=== PATIENT | female | born 1955 | race Two or more races ===

== ENCOUNTER 2025-05-30 18:04 | Inpatient (IN) | payer OTHER ==
[~2025-05-30] VITALS: Ht 154.9 cm; Wt 78.8 kg
[2025-05-30 18:25] VITALS: PULSE 85; RESP 33; O2SAT 95
[2025-05-30] MEDS: ACETAMINOPHEN 500 MG TAB or CAP PO ONE (18:38)
[2025-05-30 18:56] LABS: Hematocrit 35.2 % (36.0-46.0); Hemoglobin 12.0 g/dL (12.2-16.2); Mean Corpuscular Hemoglobin 34.1 pg (28.0-32.0); Mean Corpuscular Volume 100.0 fL (80.0-100.0); Nucleated Red Blood Cells % 0.0 %
[2025-05-30 19:14] LABS: Alanine Aminotransferase 34 U/L (7-40); Albumin 3.8 g/dL (3.2-4.8); Alkaline Phosphatase 90 U/L (46-116); Anion Gap 10 (5-15); BUN/Creatinine Ratio 6.7 (10.0-20.0); Carbon Dioxide 22 mmol/L (20-31); Chloride 100 mmol/L (98-107); Potassium 4.0 mmol/L (3.5-5.1); Total Protein 7.4 g/dL (5.7-8.2)
[2025-05-30 19:15] LABS: Bilirubin, Total 1.5 mg/dL (0.2-1.0); Blood Urea Nitrogen 8 mg/dL (9-23); Calcium 8.7 mg/dL (8.7-10.4); Glucose 186 mg/dL (74-106); Sodium 132 mmol/L (136-145)
[2025-05-30 19:23] VITALS: O2SAT 94
--- NOTE | 2025-05-30 19:30 | ED.PDOC ---
History of Present Illness HPI Comments 69 year-old female presents to the ED via EMS for general weakness as of today. Per nursing staff, patient had a witnessed fall today while using the restroom. Patient has a PMHx of Epilepsy and Type II DM. Per EMS, patients BG levels were 150 en route. Upon arrival to the ED, patient was SAT at 88% on RA, placed on 4L O2. Patient denies any CP, SOB, dizziness, or weakness at this time. REVIEW OF SYSTEMS: General: No fever, no chills, or fatigue HEENT: No sore throat, no earache, no congestion, no neck pain. Cardiac: No chest pain. No palpitations. Lungs: No shortness of breath, no cough. GI: No nausea, no vomiting, no diarrhea, no constipation, no abdominal pain : No dysuria, frequency, or urgency. No hematuria. Musculoskeletal: (+) L arm pain, no joint swelling, no extremity edema. Skin: No rash, no itching. Neuro: (+) Weakness, No headache, no dizziness (And as sated in HPI) PHYSICAL EXAM: General: Awake, alert and oriented. No acute distress. N.C in place Skin: Skin in warm, dry and intact. Appropriate color for ethnicity. HEENT: The head is normocephalic and atraumatic. Conjunctivae are clear without exudates or hemorrhage. Sclera is non-icteric. Eyelids are normal in appearance without swelling or lesions. Oral mucosa is pink and moist Neck: The neck is supple with normal range of motion. No JVD. Cardiac: Heart rate and rhythm are normal. No murmurs, gallops, or rubs are auscultated. Respiratory: No signs of respiratory distress. Lung sounds are clear in all lobes bilaterally without rales, rhonchi, or wheezes. Abdominal: Abdomen is soft, non-tender without distention, guarding or rigidity. Bowel sounds are present and normoactive in all four quadrants. Extremities: Lower extremities without edema. Neurological: The patient is awake, alert and oriented to person, place, and time with normal speech. Speech is clear. There is no facial asymmetry. Strength in upper and lower extremities intact. Psychiatric: Appropriate mood and affect. Good judgement and insight. Chief Complaint: General Weakness Time Seen by MD: 18:34 Reviewed Notes: Medications, Allergies Allergies: Coded Allergies: NO KNOWN ALLERGIES (Unverified , 05/30/25) Information Source: Patient, Emergency Med Personnel Mode of Arrival: EMS Severity: Moderate Timing: Hours Past Medical History PAST MEDICAL HISTORY: DM, Seizures Surgical History: Denies all surgeries [employer] History: No Pertinent [employer]ER History Family History Family History: Reviewed,noncontributory to illness, No family hx of Cancer, No family hx of DM, No family hx of Heart ferdis, No family hx of HTN, No family hx ofKidney fredis, No family hx of Liver fredis, No family hx of Lung fredis, No family hx of Stroke Social History Smoker: Unknown Alcohol: Unknown Drugs: Unknown Lives In: Home Was a procedure done? Was a procedure done?: No EKG EKG : Pulse Rate (adult): 69 [place]: Normal Cardiac Rhythm: NSR Block: None Hypertrophy: None ST: Normal Differential Dx Considerations may include: Differential diagnoses considered include but are not limited to sepsis, CVA, ACS, PE, stroke, ICH, adrenal insufficiency, viral syndrome, thyroid storm, myxedema coma , DKA, HHS, hypoglycemia, anemia, GI bleeding, renal failure, dehydration, hepatic failure, electrolyte imbalance, carbon monoxide poisoning, malignancy, UTI, other. X-Ray, Labs, Meds, VS Vital Signs Date Time Temp Pulse Resp B/P (MAP) Pulse Ox O2 Delivery O2 Flow Rate FiO2 05/30/25 20:54 69 05/30/25 20:48 69 05/30/25 20:00 71 05/30/25 19:30 100.9 05/30/25 19:23 94 Nasal Cannula* 4 36 05/30/25 19:21 100.9 77 25 144/82 (102) 94 100.9 05/30/25 18:38 102.2 05/30/25 18:25 85 33 95 Nasal Cannula* 4 36 05/30/25 18:25 100.2 85 33 146/75 (98) 95 100.2 05/30/25 18:20 102.9 90 30 144/80 95 102.9 Lab Test 05/30/25 21:21 05/30/25 20:13 05/30/25 19:20 05/30/25 18:31 Range/Units Urine Color Pending Urine Clarity Pending Urine pH Pending Urine Specific [place] Pending Urine Protein Pending Urine Ketones Pending Urine Blood Pending Urine Nitrite Pending Urine Bilirubin Pending Urine Urobilinogen Pending Urine Leukocyte Esterase Pending Urine RBC Pending Urine Microscopic WBC Pending Urine Squamous Epithelial Cells Pending Urine Bacteria Pending Urine Sodium Pending Urine Glucose Pending Influenza Type A Antigen Negative Negative Influenza Type B Antigen Negative Negative SARS-CoV-2 Antigen (Rapid) Negative NEGATIVE Blood Gas Specimen Type Arterial Blood Gas Sample Site Right radial Blood Gas Patient Temperature 37.0 Arterial Blood Date Drawn [id number] Arterial Blood pH 7.526 H 7.350-7.450 Arterial Blood Partial Pressure CO2 24.2 L 32.0-45.0 mmHg Arterial Blood Partial Pressure O2 86.8 83.0-108.0 mmHg Arterial Blood HCO3 19.6 L 21.0-28.0 mmol/L Arterial Blood Oxygen Saturation 97.0 94.0-98.0 % Arterial Blood Base Excess -1.7 -2.0-3.0 mmol/L Arterial Blood Oxyhemoglobin 95.7 94.0-98.0 % Arterial Blood Carboxyhemoglobin 1.1 0.5-1.5 % Arterial Blood Methemoglobin 0.2 0.0-1.5 % Arterial Blood Deoxyhemoglobin 3.0 0.0-5.0 % Ilir Test Modified Blood Gas Total Hemoglobin 12.30 12.0-16.0 g/dL Blood Gas Liter Flow 4.00 Blood Gas Modality Nasal cannula FiO2 % 36.0 White Blood Count 9.4 4.4-10.8 10^3/uL Red Blood Count 3.52 L 4.0-5.20 10^6/uL Hemoglobin 12.0 L 12.2-16.2 g/dL Hematocrit 35.2 L 36.0-46.0 % Mean Corpuscular Volume 100.0 80.0-100.0 fL Mean Corpuscular Hemoglobin 34.1 H 28.0-32.0 pg Mean Corpuscular Hemoglobin Concent 34.1 32.0-36.0 g/dL Red Cell Distribution Width 13.0 11.8-14.3 % Platelet Count 254 140-450 10^3/uL Mean Platelet Volume 7.3 6.9-10.8 fL Neutrophils (%) (Auto) 78.0 37.0-80.0 % Lymphocytes (%) (Auto) 10.6 10.0-50.0 % Monocytes (%) (Auto) 10.9 0.0-12.0 % Eosinophils (%) (Auto) 0.3 0.0-7.0 % Basophils (%) (Auto) 0.2 0.0-2.0 % Neutrophils # (Auto) 7.3 1.6-8.6 10 ^3/uL Lymphocytes # (Auto) 1.0 0.4-5.4 10 ^3/uL Monocytes # (Auto) 1.0 0-1.3 10 ^3/uL Eosinophils # (Auto) 0 0-0.8 10 ^3/uL Basophils # (Auto) 0 0-0.2 10 ^3/uL Nucleated Red Blood Cells 0.0 % D-Dimer, Quantitative 0.62 H 0.0-0.49 mg/L FEU Sodium Level 132 L 136-145 mmol/L Potassium Level 4.0 3.5-5.1 mmol/L Chloride Level 100 98-107 mmol/L Carbon Dioxide Level 22 20-31 mmol/L Anion Gap 10 5-15 Blood Urea Nitrogen 8 L 9-23 mg/dL Creatinine 1.19 H 0.550-1.02 mg/dL Glomerular Filtration Rate Calc 49 >90 mL/min BUN/Creatinine Ratio 6.7 L 10.0-20.0 Serum Glucose 186 H 74-106 mg/dL Lactic Acid Level 2.0 0.4-2.0 mmol/L Calcium Level 8.7 8.7-10.4 mg/dL Total Bilirubin 1.5 H 0.2-1.0 mg/dL Aspartate Amino Transferase (AST) 42 H 13-40 U/L Alanine Aminotransferase (ALT) 34 7-40 U/L Alkaline Phosphatase 90 46-116 U/L Troponin I High Sensitivity 3 L </=34 ng/L B-Type Natriuretic Peptide 110.30 0-100 pg/mL Total Protein 7.4 5.7-8.2 g/dL Albumin 3.8 3.2-4.8 g/dL Thyroid Stimulating Hormone (TSH) 1.50 0.55-4.78 uIU/mL Current Medications Medications (Trade) Dose Ordered Sig/Carlee Route Start Time Stop Time Status Last Admin Acetaminophen (Tylenol Tablet Or Capsule) 1,000 mg ONCE ONCE PO 05/30/25 18:30 05/30/25 18:31 DC 05/30/25 18:38 Ceftriaxone Sodium 50 ml @ 100 mls/hr ONCE ONCE IV 05/30/25 20:15 05/30/25 20:44 DC 05/30/25 20:38 Vancomycin HCl 250 ml @ 250 mls/hr ONCE ONCE IV 05/30/25 20:15 05/30/25 21:14 DC 05/30/25 21:11 Sodium Chloride 1,000 ml @ 1,000 mls/hr Q1H ONCE IV 05/30/25 20:15 05/30/25 21:14 DC 05/30/25 20:28 Sodium Chloride 1,000 ml @ 130 mls/hr Q7H42M ONCE IV 05/30/25 20:15 05/31/25 03:56 05/30/25 20:38 [place] [id number] Ph: [phone] DIAGNOSTIC IMAGING Diagnostic Imaging Report : [id number] Signed PATIENT: Maddie Landeros ACCT: [id number] UNIT: [id number] : 1955 LOC: ER ROOM / BED: / AGE / SEX: 69 / F ADM STATUS: REG ER SERVICE 02 ORDERING PHYSICIAN: SAPPHIRE PHAM MD PROCEDURE(s): CXR1 - CHEST XRAY 1 VIEW REASON: cp ORDER NUMBER(s): [id number], ACCESSION NUMBER(s): [id number] EXAM: XY CHEST XRAY 1 VIEW HISTORY: cp TECHNIQUE: 1 view of the chest COMPARISON: None FINDINGS/IMPRESSION: LUNGS: No pleural effusion, consolidation, or pneumothorax. central pulmonary vascular congestion. Crowding of bronchovascular markings in the right infrahilar space. MEDIASTINUM: Unremarkable. BONES: No acute osseous abnormality. OTHER: None. Time of 1ST Reevaluation: 19:18 Reevaluation 1ST: Unchanged Patient Education/Counseling: Need For Follow Up Family Education/Counseling: No Family Present SEPSIS Sepsis Screen Date sepsis recognized/suspect: May 30, 2025 Time Sepsis recognized/suspect: 1824 Recent Procedure: No On Antibiotic Therapy: No Respiratory Rate >20: Yes Heart Rate >90: No Temp<36 C (96.8 F) or >38.3 C: No SBP <90 or MAP <65 mmHG: No New Acute Mental Status Change: Yes Is the patient on CPAP, BIPAP,: No SEPSIS EXCLUSION NOTE: Careful fluid administration due to concern for fluid overload/ hyponatremia rapid correction. Physician Orders Urinalysis (05/30/25 18:18) Blood Culture (05/30/25 18:18) Abg W/ Co-Ox (05/30/25 19:03) Chest Xray 1 View (05/30/25 19:03) Saline Lock (05/30/25 19:03) Tooth Cutter Pinion (05/30/25 ) Urine Sodium (05/30/25 20:01) Sodium Chloride 0.9% (05/30/25 20:15) Ct Angio Chest Contrast (05/30/25 20:57) Vital Signs Date Time Temp Pulse Resp B/P (MAP) Pulse Ox O2 Delivery O2 Flow Rate FiO2 05/30/25 20:54 69 05/30/25 20:48 69 05/30/25 20:00 71 05/30/25 19:30 100.9 05/30/25 19:23 94 Nasal Cannula* 4 36 05/30/25 19:21 100.9 77 25 144/82 (102) 94 100.9 05/30/25 18:38 102.2 05/30/25 18:25 85 33 95 Nasal Cannula* 4 36 05/30/25 18:25 100.2 85 33 146/75 (98) 95 100.2 05/30/25 18:20 102.9 90 30 144/80 95 102.9 Laboratory Tests Test 05/30/25 18:31 Lactic Acid Level 2.0 mmol/L (0.4-2.0) White Blood Count 9.4 10^3/uL (4.4-10.8) Medications Medications Dose Ordered Sig/Carlee Route Start Time Stop Time Status Last Admin Dose Admin Acetaminophen 1,000 mg ONCE ONCE PO 05/30/25 18:30 05/30/25 18:31 DC 05/30/25 18:38 Ceftriaxone Sodium 50 ml @ 100 mls/hr ONCE ONCE IV 05/30/25 20:15 05/30/25 20:44 DC 05/30/25 20:38 Sodium Chloride 1,000 ml @ 130 mls/hr Q7H42M ONCE IV 05/30/25 20:15 05/31/25 03:56 05/30/25 20:38 Sodium Chloride 1,000 ml @ 1,000 mls/hr Q1H ONCE IV 05/30/25 20:15 05/30/25 21:14 DC 05/30/25 20:28 Vancomycin HCl 250 ml @ 250 mls/hr ONCE ONCE IV 05/30/25 20:15 05/30/25 21:14 DC 05/30/25 21:11 Departure 1 Departure Time of Disposition: 20:11 Impression: Primary Impression: Generalized weakness Additional Impressions: Suspected sepsis Hyponatremia KENISHA (acute kidney injury) Respiratory alkalosis Disposition: ADMITTED INPATIENT Condition: Stable Comments 69-year-old female who presented with generalized weakness, hypoxia found on initial EMS evaluation. Antibiotics and careful fluid administration administered for suspected sepsis/KENISHA. Age adjusted D-dimer negative. Patient admitted to hospitalist service for further treatment, evaluation and monitoring. Discussed with Zuleima Romero Critical Care Note Critical Care Time?: No Stability Stability form required: No Heart Score Heart Score: Heart Score Response (Comments) Value History N/A 0 EKG N/A 0 Age N/A 0 Risk Factors N/A 0 Troponin N/A 0 Total 0 I personally scribed for SAPPHIRE PHAM MD ([email or web address]) on 05/30/25 at 19:30. Electronically submitted by Ashlie Gomez ([email or web address]). I personally scribed for SAPPHIRE PHAM MD ([email or web address]) on 05/30/25 at 19:42. Electronically submitted by Ashlie Gomez ([email or web address]). I personally scribed for SAPPHIRE PHAM MD ([email or web address]) on 05/30/25 at 20:54. Electronically submitted by Ashile Gomez ([email or web address]). SAPPHIRE PHAM MD May 30, 2025 19:30
[2025-05-30 19:32] LABS: Base Excess -1.7 mmol/L (-2.0-3.0)
--- NOTE | 2025-05-30 19:39 | DVH ---
EXAM: XY CHEST XRAY 1 VIEW HISTORY: cp TECHNIQUE: 1 view of the chest COMPARISON: None FINDINGS/IMPRESSION: LUNGS: No pleural effusion, consolidation, or pneumothorax. central pulmonary vascular congestion. Crowding of bronchovascular markings in the right infrahilar space. MEDIASTINUM: Unremarkable. BONES: No acute osseous abnormality. OTHER: None.
[2025-05-30] MEDS: SODIUM CHLORIDE 0.9% 1,000 ML IV ONE ×2 (20:28→20:38)
[2025-05-30 20:49] LABS: COVID19 ANTIGEN SOFIA FIA NEGATIVE (NEGATIVE)
--- NOTE | 2025-05-30 21:02 | ECG ---
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
[2025-05-30] MEDS: VANCOMYCIN 1GM/250ML KIT 250 ML IV ONE (21:11)
[2025-05-30] MEDS: IOHEXOL 350 MG/ML 100ML IJ ONE (21:12)
[2025-05-30] MEDS ORDERED: ONDANSETRON HCL 4 MG/2 ML VIAL IV PRN ×3 (21:45→23:00)
[2025-05-30 21:47] LABS: Urine Protein, UAD 1+ (Negative)
[2025-05-30] MEDS: PANTOPRAZOLE 40 MG/10 ML VIAL INJ IV SCH (22:03)
--- NOTE | 2025-05-30 22:07 | DVH ---
CTA Chest with intravenous contrast INDICATION: r/o dvt, pneumonia vs chf. Shortness of breath. COMPARISON: None TECHNIQUE: Multidetector spiral CTA of the chest was performed of the chest with intravenous contrast. PULMONARY ANGIOGRAPHY PROTOCOL was utilized using a bolus- tracking technique centered on the main pulmonary artery. Axial, coronal and sagittal multiplanar and MIP reformats were performed. Radiation Dose : 1. Chest: CTDI volume is 26.45 mGy. Dose-length product is 886.53 mGy*cm The dose indicators for CT are the volume Computed Tomography (CT) Dose Index (CTDIvol) and the Dose Length Product (DLP), and are measured in units of mGy and mGy-cm, respectively. These indicators are not patient dose, but values generated from the CT scanner acquisition factors. The report includes radiation exposure data for exposures received during this examination. FINDINGS: Pulmonary artery: No pulmonary embolism Lower neck: Normal thyroid. Lungs: Central airways patent. Mild diffuse bronchial wall thickening. Mild patchy airspace disease throughout the dependent right lower lobe. Mild diffuse interlobular septal thickening. Mild hazy ground-glass opacity throughout both lungs. Heart/Vascular Structures: Mild multichamber cardiac enlargement. Coronary calcifications. No pericardial effusion. Lymph Nodes: No adenopathy Pleura: No pleural effusion or significant pneumothorax. Musculoskeletal: No acute osseous abnormality. Soft tissues: Normal. Upper abdomen: Infrarenal IVC filter. Small hiatal hernia. IMPRESSION: No pulmonary embolus. Mild pulmonary edema. Patchy opacity within the basal right lower lobe which could be atelectatic although difficult to exclude a developing pneumonia.
[2025-05-30] MEDS ORDERED: MELATONIN 5 MG TAB PO PRN ×2 (22:45→23:00)
[2025-05-30] MEDS ORDERED: ENOXAPARIN SOD 30 MG/0.3 ML SYRINGE SC ONE (22:45)
[2025-05-30] MEDS ORDERED: AZITHROMYCIN 500MG/250ML 250 ML IV ONE ×2 (22:45→23:00)
[2025-05-30] MEDS ORDERED: diphenhydrAMINE HCL 50 MG/1 ML VL IV ONE (22:45)
[2025-05-30 22:51] VITALS: BP 133/53; PULSE 67; RESP 20; TEMP 100.9; O2SAT 94
[2025-05-30] MEDS ORDERED: METO-289 PO (22:51)
[2025-05-30] MEDS ORDERED: LOSA-535 PO (22:51)
[2025-05-30] MEDS ORDERED: LEVE100012 PO (22:51)
[2025-05-30] MEDS ORDERED: GABA-1250 PO (22:51)
[2025-05-30] MEDS ORDERED: ATOR10TA PO (22:51)
[2025-05-30] MEDS: diphenhydrAMINE HCL 50 MG/1 ML VL IV ONE (23:09)
[2025-05-30] MEDS: ENOXAPARIN SOD 30 MG/0.3 ML SYRINGE SC ONE (23:10)
[2025-05-30 23:23] VITALS: PULSE 72; RESP 18; O2SAT 97
[2025-05-30] MEDS: IPRATROPIUM BROM 0.5 MG/2.5ML INH SOL NEB SCH (23:23)
[2025-05-30 23:30] VITALS: PULSE 70; RESP 18; O2SAT 100
[2025-05-30 23:57] VITALS: BP 140/75; PULSE 64; RESP 18; TEMP 97.5; O2SAT 96
[2025-05-31] VITALS (16 sets, daily range): BP systolic 104–151; BP diastolic 63–82; PULSE 61–86; RESP 16–64; TEMP 97.4–101; O2SAT 92–100
[2025-05-31] MEDS ORDERED: IPRATROPIUM BROM 0.5 MG/2.5ML INH SOL NEB SCH
--- NOTE | 2025-05-31 00:26 | DVHHP2 ---
Admitting Diagnosis: Pneumonia, Hypoxia, UTI, generalized weakness History of Present Illness History Source: Patient Exam Limitations: No limitations HPI Mrs. Maddie Landeros is a 69 year-old female with a history of Epilepsy, shingles, right nephrectomy and Type II DM who presents with general weakness, frequent falls, fevers. Patient was found to have 02 SAT at 88% on RA, placed on 4L O2 on arrival to the hospital. Patient denies supplemental home oxygen use. Patient denies any CP, SOB, dizziness, or weakness at this time. Patient does endorse exertional dyspnea. Patient admitted for further evaluation and treatment. Home Meds Reported Medications Atorvastatin Calcium (Lipitor) 10 Mg Tab, 1 TAB PO DAILY, #30 TAB 5 Refills 05/30/25 Metoprolol Succinate (Metoprolol Succinate Er) 50 Mg Tab, 1 TAB PO DAILY, #30 TAB 5 Refills 05/30/25 Losartan Potassium (Losartan Potassium) 100 Mg Tab, 1 TAB PO DAILY, #30 TAB 5 Refills 05/30/25 Gabapentin (Gabapentin) 300 Mg Cap, 1 CAP PO TID, #90 CAP 5 Refills 05/30/25 Levetiracetam (Keppra) 1,000 Mg Tab, 1 TAB PO BID, #60 TAB 5 Refills 05/30/25 Past Medical History Central Nervous System: Seizure Endocrine: NIDDM Others Shingles Past Surgical History: Other (right nephrectomy) Smoker: No Hx (Negative) Alocohol: None Drugs: None Lives with: Alone Domestic Violence: Neg Review of Systems Constitutional: Weakness, Other (frequent falls) Ears, Nose, & Throat: No symptom reported Eyes: No symptom reported Pulmonary/Respiratory: Dyspnea Cardiovascular: No symptom reported Gastrointestinal: No symptom reported Genitourinary: No symptom reported Musculoskeletal: No symptom reported Skin: No symptom reported Psychiatric: No symptom reported Endocrine: No symptom reported Hemotologic/Lymphatic: No symptom reported H&P Exam Vital Signs Vital Signs Date Time Temp Pulse Resp B/P (MAP) Pulse Ox O2 Delivery O2 Flow Rate FiO2 05/30/25 23:57 97.5 64 18 140/75 (96) 96 97.5 05/30/25 23:23 Nasal Cannula 3.0 05/30/25 23:23 32 General Appeara: Well developed, Well nourished, Normal Appearance Head Exam: Normal inspection Neck Exam: Normal inspection, Non-tender, Normal alignment Eye Exam: bilateral eye Normal inspection, bilateral eye PERRL, bilateral eye EOMI Ear Exam: bilateral ear Auricle normal Nasal Exam: Normal inspection Mouth: Normal Inspection Pulmonary/Respiratory: Normal inspection, Normal breath sounds, Chest non- tender, Decreased breath sounds Cardiovascular/Chest: Normal inspection, Regular rate, Normal Rhythm Peripheral Pulses: 2+ dorsalis pedis (R), 2+ dorsalis pedis (L), 2+ Radial (R), 2+ Radial (L) Abdominal Exam: Normal bowel sounds, Soft, No tenderness ELECTRICAL CONTINUITY TESTER Exam: Normal hearing, Normal speech, PERRL Neuro/Mental St: Alert, Oriented Appearance: Appropriate appearance, Appropriate insight Eye contact/ Speech: Cooperative, Good eye contact, Normal speech Thoughts/Psych: Normal thought pattern Skin Exam: Normal inspection, Normal color, Warm/dry SEPSIS Sepsis Screen Date sepsis recognized/suspect: May 30, 2025 Time Sepsis recognized/suspect: 1933 Recent Procedure: No On Antibiotic Therapy: No Respiratory Rate >20: Yes Heart Rate >90: No Temp<36 C (96.8 F) or >38.3 C: Yes SBP <90 or MAP <65 mmHG: No New Acute Mental Status Change: Yes Is the patient on CPAP, BIPAP,: No Physician Orders Blood Culture (05/30/25 18:18) Abg W/ Co-Ox (05/30/25 19:03) Chest Xray 1 View (05/30/25 19:03) Saline Lock (05/30/25 19:03) Director Of Web Marketing (05/30/25 ) Sodium Chloride 0.9% (05/30/25 20:15) Ct Angio Chest Contrast (05/30/25 20:57) Pt Request For Service (05/30/25 21:32) Full Code (05/30/25 21:32) Fall Risk Precautions In Place QSHIFT (05/30/25 21:32) Acetaminophen Tablet (Tylenol Tablet) (05/30/25 21:45) Pantoprazole (Protonix) (05/30/25 21:57) Admit (05/30/25 22:37) Stat Ekg For Chest Pain (05/30/25 22:37) Notify Md Of Changes From Base (05/30/25 22:37) Skiver Hand For 24 Hours (05/30/25 22:37) Emergency Dysrhythmia Protocol (05/30/25 22:37) Rhythm Strips Once Every Shift (05/30/25 22:37) Oxygen By Nasal Cannula (05/30/25 22:37) Communication Order (05/30/25 22:42) Ipratropium Medneb (Atrovent Medneb) (05/31/25 00:00) Ondansetron Hcl (Zofran) (05/30/25 23:00) Ceftriaxone 1gm/50ml (Rocephin) (05/31/25 21:00) Melatonin (Melatonin) (05/30/25 23:00) Gabapentin Capsule (Neurontin Capsule) (05/31/25 06:00) Metoprolol Xl Succinate (Toprol Xl) (05/31/25 10:00) (Nf) Atorvastatin Calcium (Lipitor) (05/31/25 10:00) (Nf) Levetiracetam (Keppra) (05/31/25 10:00) (Nf) Losartan Potassium (05/31/25 10:00) Vital Signs Date Time Temp Pulse Resp B/P (MAP) Pulse Ox O2 Delivery O2 Flow Rate FiO2 05/30/25 23:57 97.5 64 18 140/75 (96) 96 97.5 05/30/25 23:30 70 18 100 05/30/25 23:23 97 Nasal Cannula 3.0 05/30/25 23:23 72 18 97 05/30/25 23:23 97 Nasal Cannula* 3 32 05/30/25 22:51 100.9 67 20 133/53 94 4.0 36 100.9 05/30/25 21:49 67 20 133/53 (79) 94 05/30/25 20:54 69 05/30/25 20:48 69 05/30/25 20:36 69 25 140/73 (95) 94 05/30/25 20:00 71 05/30/25 19:30 100.9 05/30/25 19:23 94 Nasal Cannula* 4 36 05/30/25 19:21 100.9 77 25 144/82 (102) 94 100.9 05/30/25 18:38 102.2 05/30/25 18:25 85 33 95 Nasal Cannula* 4 36 05/30/25 18:25 100.2 85 33 146/75 (98) 95 100.2 05/30/25 18:20 102.9 90 30 144/80 95 102.9 Laboratory Tests Test 05/30/25 18:31 Lactic Acid Level 2.0 mmol/L (0.4-2.0) White Blood Count 9.4 10^3/uL (4.4-10.8) Medications Medications Dose Ordered Sig/Carlee Route Start Time Stop Time Status Last Admin Dose Admin Acetaminophen 1,000 mg ONCE ONCE PO 05/30/25 18:30 05/30/25 18:31 DC 05/30/25 18:38 1,000 MG Ceftriaxone Sodium 50 ml @ 100 mls/hr ONCE ONCE IV 05/30/25 20:15 05/30/25 20:44 DC 05/30/25 20:38 100 MLS/HR Diphenhydramine HCl 12.5 mg ONCE ONCE IV 05/30/25 22:45 05/30/25 23:04 DC 05/30/25 23:09 12.5 MG Enoxaparin Sodium 30 mg ONCE ONCE SC 05/30/25 22:45 05/30/25 23:04 DC 05/30/25 23:10 30 MG Ipratropium [place] 0.5 mg Q6HR NEB 05/31/25 00:00 05/30/25 23:23 0.5 MG Pantoprazole Sodium 40 mg DAILY IV 05/30/25 21:57 05/30/25 22:03 40 MG Sodium Chloride 1,000 ml @ 130 mls/hr Q7H42M ONCE IV 05/30/25 20:15 05/31/25 03:56 05/30/25 20:38 130 MLS/HR Sodium Chloride 1,000 ml @ 1,000 mls/hr Q1H ONCE IV 05/30/25 20:15 05/30/25 21:14 DC 05/30/25 20:28 1,000 MLS/HR Vancomycin HCl 250 ml @ 250 mls/hr ONCE ONCE IV 05/30/25 20:15 05/30/25 21:14 DC 05/30/25 21:11 250 MLS/HR Labs/Xrays Labs Test 05/30/25 21:21 05/30/25 20:13 05/30/25 19:20 05/30/25 18:31 Range/Units Urine Color Yellow Yellow Urine Clarity Clear Clear Urine pH 6.5 5.0-9.0 Urine Specific [place] 1.015 1.001-1.035 Urine Protein 1+ H Negative Urine Ketones Negative Negative Urine Blood Trace H Negative /uL Urine Nitrite Negative Negative Urine Bilirubin Negative Negative Urine Urobilinogen Normal Negative mg/dL Urine Leukocyte Esterase 1+ Negative /uL Urine RBC <1 0 - 4 /hpf Urine Microscopic WBC 3 0-5 /HPF Urine Squamous Epithelial Cells Few <5 /hpf Urine Bacteria Few H None Seen /hpf Urine Sodium 58 40-220 mmol/L Urine Glucose Trace Normal mg/dL Influenza Type A Antigen Negative Negative Influenza Type B Antigen Negative Negative SARS-CoV-2 Antigen (Rapid) Negative NEGATIVE Blood Gas Specimen Type Arterial Blood Gas Sample Site Right radial Blood Gas Patient Temperature 37.0 Arterial Blood Date Drawn [id number] Arterial Blood pH 7.526 H 7.350-7.450 Arterial Blood Partial Pressure CO2 24.2 L 32.0-45.0 mmHg Arterial Blood Partial Pressure O2 86.8 83.0-108.0 mmHg Arterial Blood HCO3 19.6 L 21.0-28.0 mmol/L Arterial Blood Oxygen Saturation 97.0 94.0-98.0 % Arterial Blood Base Excess -1.7 -2.0-3.0 mmol/L Arterial Blood Oxyhemoglobin 95.7 94.0-98.0 % Arterial Blood Carboxyhemoglobin 1.1 0.5-1.5 % Arterial Blood Methemoglobin 0.2 0.0-1.5 % Arterial Blood Deoxyhemoglobin 3.0 0.0-5.0 % Ilir Test Modified Blood Gas Total Hemoglobin 12.30 12.0-16.0 g/dL Blood Gas Liter Flow 4.00 Blood Gas Modality Nasal cannula FiO2 % 36.0 White Blood Count 9.4 4.4-10.8 10^3/uL Red Blood Count 3.52 L 4.0-5.20 10^6/uL Hemoglobin 12.0 L 12.2-16.2 g/dL Hematocrit 35.2 L 36.0-46.0 % Mean Corpuscular Volume 100.0 80.0-100.0 fL Mean Corpuscular Hemoglobin 34.1 H 28.0-32.0 pg Mean Corpuscular Hemoglobin Concent 34.1 32.0-36.0 g/dL Red Cell Distribution Width 13.0 11.8-14.3 % Platelet Count 254 140-450 10^3/uL Mean Platelet Volume 7.3 6.9-10.8 fL Neutrophils (%) (Auto) 78.0 37.0-80.0 % Lymphocytes (%) (Auto) 10.6 10.0-50.0 % Monocytes (%) (Auto) 10.9 0.0-12.0 % Eosinophils (%) (Auto) 0.3 0.0-7.0 % Basophils (%) (Auto) 0.2 0.0-2.0 % Neutrophils # (Auto) 7.3 1.6-8.6 10 ^3/uL Lymphocytes # (Auto) 1.0 0.4-5.4 10 ^3/uL Monocytes # (Auto) 1.0 0-1.3 10 ^3/uL Eosinophils # (Auto) 0 0-0.8 10 ^3/uL Basophils # (Auto) 0 0-0.2 10 ^3/uL Nucleated Red Blood Cells 0.0 % D-Dimer, Quantitative 0.62 H 0.0-0.49 mg/L FEU Sodium Level 132 L 136-145 mmol/L Potassium Level 4.0 3.5-5.1 mmol/L Chloride Level 100 98-107 mmol/L Carbon Dioxide Level 22 20-31 mmol/L Anion Gap 10 5-15 Blood Urea Nitrogen 8 L 9-23 mg/dL Creatinine 1.19 H 0.550-1.02 mg/dL Glomerular Filtration Rate Calc 49 >90 mL/min BUN/Creatinine Ratio 6.7 L 10.0-20.0 Serum Glucose 186 H 74-106 mg/dL Lactic Acid Level 2.0 0.4-2.0 mmol/L Calcium Level 8.7 8.7-10.4 mg/dL Total Bilirubin 1.5 H 0.2-1.0 mg/dL Aspartate Amino Transferase (AST) 42 H 13-40 U/L Alanine Aminotransferase (ALT) 34 7-40 U/L Alkaline Phosphatase 90 46-116 U/L Troponin I High Sensitivity 3 L </=34 ng/L B-Type Natriuretic Peptide 110.30 0-100 pg/mL Total Protein 7.4 5.7-8.2 g/dL Albumin 3.8 3.2-4.8 g/dL Thyroid Stimulating Hormone (TSH) 1.50 0.55-4.78 uIU/mL Assessment/Plan Problem List: (1) Pneumonia (2) UTI (urinary tract infection) (3) Generalized weakness (4) Respiratory alkalosis (5) Hypoxia Plan This is a 69 year-old female with a history of Epilepsy, shingles, right nephrectomy and Type II DM who presents with general weakness, frequent falls, fevers. Patient found to have 1. Pneumonia with hypoxia 2. Respiratory alkalosis 3. Urinary tract infection 4. Generalized weakness 5. Seizure disorder 6. DM type 2 7. hx of right nephrectomy Plan Admit Telemetry IV antibiotics Bronchodilators Blood cultures x2 follow results Urine culture obtain PT evaluation Fall Precautions Glucose monitoring ac & hs coverage with reg low dose sliding scale Reconcile and continue home medications Discussed all above with patient and patient caregiver , both verbalizes agreement and understanding of care plan. All questions were answered. Plan discussed with: Patient, Other Code Visit Code Visit Total Time (mins): 45 JAREN QUICK May 31, 2025 00:26
[2025-05-31] MEDS: GABAPENTIN 300 MG CAP PO SCH (05:34)
[2025-05-31] MEDS ORDERED: PATIENTS OWN MEDICATION (Levetiracetam (Keppra) 1 TAB) PO SCH (10:00)
[2025-05-31] MEDS ORDERED: AZITHROMYCIN 500MG/250ML 250 ML IV SCH (10:00)
[2025-05-31] MEDS ORDERED: PATIENTS OWN MEDICATION (Atorvastatin Calcium (Lipitor) 1 TAB) PO SCH (10:00)
[2025-05-31] MEDS: LOSARTAN POTASSIUM 50 MG TAB PO SCH (10:00)
[2025-05-31] MEDS ORDERED: PATIENTS OWN MEDICATION (Losartan Potassium 1 TAB) PO SCH (10:00)
[2025-05-31] MEDS: METOPROLOL SUCCINATE XL 50 MG TAB PO SCH (10:00)
[2025-05-31] MEDS: levETIRAcetam 500 MG TAB PO SCH (10:34)
[2025-05-31] MEDS: AZITHROMYCIN 250 MG TAB PO ONE (12:18)
[2025-05-31] MEDS: ACETAMINOPHEN 325 MG TAB PO PRN (12:43)
[2025-05-31] MEDS: ATORVASTATIN 20 MG TAB PO SCH (21:10)
[2025-06-01] VITALS (16 sets, daily range): BP systolic 141–181; BP diastolic 82–100; PULSE 64–98; RESP 16–20; TEMP 98.2–99.2; O2SAT 92–100
[2025-06-01] MEDS ORDERED: METF-370 PO (01:11)
[2025-06-01] MEDS ORDERED: ALEN70TA74 PO (01:11)
[2025-06-01] MEDS ORDERED: TRAM50TA2 PO (01:13)
[2025-06-01] MEDS ORDERED: DEXTROSE (50%) 50ML SYRG IV PRN (06:00)
[2025-06-01] MEDS: ACCU-CHEK COMFORT CURVE STRIP VI SCH (06:10)
[2025-06-01] MEDS: InsuLIN REG 1unit/0.01ml Soln (100units/ml) SC SCH (06:16)
--- NOTE | 2025-06-01 08:15 | DVH ---
CLINICAL INFORMATION: Fall injury. TECHNIQUE: Axial imaging was obtained through the brain without contrast. Coronal and sagittal reformatted images were obtained, reviewed, and stored. Images were reviewed in brain and bone windows. All CT scans at this medical facility are performed using dose modulation techniques as appropriate to a performed exam including the following: Automated exposure control was utilized; adjustment of the MA and/or KV according to patient size; and use of iterative reconstruction technique. CTDIvol = 54.69 mGy DLP = 1076.37 mGy-cm COMPARISON: None FINDINGS: There is no acute intracranial hemorrhage. No mass effect or midline shift. Scattered areas of hypoattenuation are seen in the periventricular and subcortical white matter, which are nonspecific but most likely sequelae of small vessel ischemic disease.The ventricles and sulci are within normal limits in size for age. Basal cisterns are patent. The calvarium is unremarkable. Small retention cyst versus polyp in the right maxillary sinus. Mastoid air cells are clear. IMPRESSION: No CT evidence of acute intracranial abnormality.
[2025-06-01] MEDS: AZITHROMYCIN 250 MG TAB PO SCH (09:56)
--- NOTE | 2025-06-01 15:06 | DVHPN2 ---
Subjective Overnight events noted. Patient is currently on IV antibiotics, blood cultures are negative to date. Patient has had a mechanical fall this morning CT head is negative for any acute pathology. Reviewed: Care Plan Changes from previous H/P or p: No Changes Objective Vitals Vital Signs Date Time Temp Pulse Resp B/P (MAP) Pulse Ox O2 Delivery O2 Flow Rate FiO2 06/01/25 15:01 77 18 93 06/01/25 15:01 Room Air 06/01/25 15:01 0 21 06/01/25 13:00 98.2 141/88 (105) 98.2 Intake/Output Intake and Output 06/01/25 07:00 Intake Total 870 ml Balance 870 ml Intake Oral 870 ml # Voids 7 Exam HEENT pupils are reactive Neck is supple CV is S1-S2 regular rate and rhythm Respiratory diminished breath sounds bases GI positive bowel sound Extremity no edema BAND MASTER no motor deficit Medications Current Medications Medications Dose Ordered Sig/Carlee Route Start Time Stop Time Status Last Admin Dose Admin Acetaminophen 650 mg Q6HPRN PRN PO 05/30/25 21:45 06/01/25 10:09 650 MG Pantoprazole Sodium 40 mg DAILY IV 05/30/25 21:57 06/01/25 10:08 40 MG Ipratropium [place] 0.5 mg Q6HR NEB 05/31/25 00:00 06/01/25 15:00 0.5 MG Ondansetron HCl 4 mg Q6HPRN PRN IV 05/30/25 23:00 Ceftriaxone Sodium 50 ml @ 100 mls/hr DAILY@2100 IV 05/31/25 21:00 05/31/25 21:11 100 MLS/HR Melatonin 5 mg ONCE@2200 PRN PO 05/30/25 23:00 Gabapentin 300 mg TID PO 05/31/25 06:00 06/01/25 14:49 300 MG Metoprolol Succinate 50 mg DAILY PO 05/31/25 10:00 06/01/25 09:56 50 MG Atorvastatin Calcium 10 mg HS PO 05/31/25 22:00 05/31/25 21:10 10 MG Levetiracetam 750 mg BID PO 05/31/25 10:00 06/01/25 09:56 750 MG Losartan Potassium 100 mg DAILY PO 05/31/25 10:00 06/01/25 09:56 100 MG Azithromycin 500 mg DAILY PO 06/01/25 10:00 06/01/25 09:56 500 MG Diagnostic Test (Pha) 1 strip ACHS 06/01/25 07:00 06/01/25 11:21 1 STRIP Insulin Human Regular ACHS SC 06/01/25 07:00 06/01/25 11:28 3 UNITS Dextrose 50 ml UD PRN IV 06/01/25 06:00 Laboratory Results Laboratory Tests 05/30/25 18:31 HgA1c, TSH Test 06/01/25 13:47 Thyroid Stimulating Hormone (TSH) 0.66 uIU/mL (0.55-4.78) Urinalysis Test 05/30/25 21:21 Urine Color Yellow (Yellow) Urine Clarity Clear (Clear) Urine pH 6.5 (5.0-9.0) Urine Specific [place] 1.015 (1.001-1.035) Urine Protein 1+ (Negative) H Urine Ketones Negative (Negative) Urine Blood Trace /uL (Negative) H Urine Nitrite Negative (Negative) Urine Bilirubin Negative (Negative) Urine Urobilinogen Normal mg/dL (Negative) Urine Leukocyte Esterase 1+ /uL (Negative) Urine RBC <1 /hpf (0 - 4) Urine Microscopic WBC 3 /HPF (0-5) Urine Squamous Epithelial Cells Few /hpf (<5) Urine Bacteria Few /hpf (None Seen) H Urine Sodium 58 mmol/L (40-220) Urine Glucose Trace mg/dL (Normal) Microbiology Microbiology Date/Time Source Procedure Growth Status 05/30/25 18:38 Blood Blood Culture - Preliminary NO GROWTH AFTER 24 HOURS OF INCUBATION. Resulted Assessment/Plan Assessment/Plan 69-year-old female with a known history of epilepsy currently on Keppra, history of shingles, status post right nephrectomy, diabetes mellitus type 2, hypertension, dyslipidemia, peripheral neuropathy presented to the hospital with generalized weakness and frequent falls found to have 1. Acute hypoxic respiratory failure requiring O2 supplementation suspected secondary to community-acquired pneumonia 2. Community-acquired pneumonia/Gram-positive/Gram-negative 3. Generalized weakness with frequent falls 4. Epilepsy 5. Diabetes mellitus type 2 6. Dyslipidemia 7. Hypertension 8. Urinary tract infection 9. Peripheral neuropathy -continue IV antibiotics, physical therapy evaluation and treatment, follow up final culture sensitivity, discharge plan. -fall precaution and seizure precaution. Plan discussed with: Patient, Daughter My Orders Orders - ABHAY LOJA MD Procedure Category Date Status Time Pt Request For Service PT 06/01/25 Logged 13:10 Date of Service: Jun 01, 2025 Billing Provider: ABHAY LOJA MD Common Visit Codes: NOT BILLABLE ABHAY LOJA MD Jun 01, 2025 15:06
[2025-06-02] VITALS (15 sets, daily range): BP systolic 137–173; BP diastolic 87–107; PULSE 61–81; RESP 16–20; TEMP 98.2–99.1; O2SAT 93–100
[2025-06-02 15:34] LABS: Chloride 105 mmol/L (98-107); Potassium 3.7 mmol/L (3.5-5.1); Sodium 140 mmol/L (136-145)
[2025-06-02 15:35] LABS: Anion Gap 11 (5-15); Calcium 9.1 mg/dL (8.7-10.4); Carbon Dioxide 24 mmol/L (20-31)
[2025-06-02 15:36] LABS: Hematocrit 35.1 % (36.0-46.0); Hemoglobin 11.9 g/dL (12.2-16.2); Mean Corpuscular Hemoglobin 33.8 pg (28.0-32.0); Mean Corpuscular Volume 99.8 fL (80.0-100.0); Nucleated Red Blood Cells % 0.1 %
[2025-06-02] MEDS ORDERED: CEFD300C2 PO (15:37)
[2025-06-02] MEDS ORDERED: AZIT500T66 PO (15:37)
[2025-06-02 15:40] LABS: BUN/Creatinine Ratio 8.3 (10.0-20.0); Blood Urea Nitrogen 9 mg/dL (9-23)
--- NOTE | 2025-06-02 15:41 | DVHDS2 ---
Discharge Summary Date of Admission May 30, 2025 at 22:37 Date of Discharge: Jun 02, 2025 Labs/Diagnostic Data: Laboratory Results Test 06/02/25 14:31 06/02/25 05:37 06/01/25 13:47 05/30/25 21:21 POC Glucose 152 mg/dl (70-106) Vitamin B12 Level 249 pg/mL (211-911) Folic Acid 22.62 ng/mL (>5.38) Thyroid Stimulating Hormone (TSH) 0.66 uIU/mL (0.55-4.78) Urine Color Yellow (Yellow) Urine Clarity Clear (Clear) Urine pH 6.5 (5.0-9.0) Urine Specific [place] 1.015 (1.001-1.035) Urine Protein 1+ (Negative) Urine Ketones Negative (Negative) Urine Blood Trace /uL (Negative) Urine Nitrite Negative (Negative) Urine Bilirubin Negative (Negative) Urine Urobilinogen Normal mg/dL (Negative) Urine Leukocyte Esterase 1+ /uL (Negative) Urine RBC <1 /hpf (0 - 4) Urine Microscopic WBC 3 /HPF (0-5) Urine Squamous Epithelial Cells Few /hpf (<5) Urine Bacteria Few /hpf (None Seen) Urine Sodium 58 mmol/L (40-220) Urine Glucose Trace mg/dL (Normal) Test 05/30/25 20:13 05/30/25 19:20 05/30/25 18:31 Influenza Type A Antigen Negative (Negative) Influenza Type B Antigen Negative (Negative) SARS-CoV-2 Antigen (Rapid) Negative (NEGATIVE) Blood Gas Specimen Type Arterial Blood Gas Sample Site Right radial Blood Gas Patient Temperature 37.0 Arterial Blood Date Drawn [id number] Arterial Blood pH 7.526 (7.350-7.450) Arterial Blood Partial Pressure CO2 24.2 mmHg (32.0-45.0) Arterial Blood Partial Pressure O2 86.8 mmHg (83.0-108.0) Arterial Blood HCO3 19.6 mmol/L (21.0-28.0) Arterial Blood Oxygen Saturation 97.0 % (94.0-98.0) Arterial Blood Base Excess -1.7 mmol/L (-2.0-3.0) Arterial Blood Oxyhemoglobin 95.7 % (94.0-98.0) Arterial Blood Carboxyhemoglobin 1.1 % (0.5-1.5) Arterial Blood Methemoglobin 0.2 % (0.0-1.5) Arterial Blood Deoxyhemoglobin 3.0 % (0.0-5.0) Ilir Test Modified Blood Gas Total Hemoglobin 12.30 g/dL (12.0-16.0) Blood Gas Liter Flow 4.00 Blood Gas Modality Nasal cannula FiO2 % 36.0 Eosinophils (%) (Auto) 0.3 % (0.0-7.0) Eosinophils # (Auto) 0 10 ^3/uL (0-0.8) Basophils # (Auto) 0 10 ^3/uL (0-0.2) Nucleated Red Blood Cells 0.0 % D-Dimer, Quantitative 0.62 mg/L FEU (0.0-0.49) Lactic Acid Level 2.0 mmol/L (0.4-2.0) Total Bilirubin 1.5 mg/dL (0.2-1.0) Aspartate Amino Transferase (AST) 42 U/L (13-40) Alanine Aminotransferase (ALT) 34 U/L (7-40) Alkaline Phosphatase 90 U/L (46-116) Troponin I High Sensitivity 3 ng/L (</=34) B-Type Natriuretic Peptide 110.30 pg/mL (0-100) Total Protein 7.4 g/dL (5.7-8.2) Albumin 3.8 g/dL (3.2-4.8) Brief Hx & Hospital Course: 69-year-old female with a known history of epilepsy currently on Keppra, history of shingles, status post right nephrectomy, diabetes mellitus type 2, hypertension, dyslipidemia, peripheral neuropathy presented to the hospital with generalized weakness and frequent falls found to have acute hypoxic respiratory failure requiring O2 supplementation secondary to community-acquired pneumonia. Patient was treated with the IV antibiotics. Patient also has some UTI which was treated as well. Patient generalized weakness has been embolic she is feeling 70% better. Blood cultures are negative to date. Patient is being discharged under stable condition with the home health home safety evaluation. Patient needs to follow up with the PCP with a repeat chest x-ray in 1-2 weeks to make sure resolution of pneumonia otherwise may need CT chest. Condition at Discharge: Stable Final Diagnosis/Problems List 69-year-old female with a known history of epilepsy currently on Keppra, history of shingles, status post right nephrectomy, diabetes mellitus type 2, hypertension, dyslipidemia, peripheral neuropathy presented to the hospital with generalized weakness and frequent falls found to have 1. Acute hypoxic respiratory failure requiring O2 supplementation suspected secondary to community-acquired pneumonia 2. Community-acquired pneumonia/Gram-positive/Gram-negative 3. Generalized weakness with frequent falls 4. Epilepsy 5. Diabetes mellitus type 2 6. Dyslipidemia 7. Hypertension 8. Urinary tract infection 9. Peripheral neuropathy Discharge Disposition: Home with Health Services SNF Discharge Will this Physician continue t: No Discharge Instruct/Medications Diet: Cardiac 2g Na,low cholest Diet comment: 1800 ADA diet Activity: No Restrictions, As Tolerated Follow Up/Referral: Follow up with the PCP with a repeat chest x-ray in 1-2 weeks. Medications: Scan cefdinir as well as azithromycin. New Medications: Azithromycin (Azithromycin) 500 Mg Tab 1 TAB PO DAILY, #5 TAB Cefdinir (Cefdinir) 300 Mg Cap 1 CAP PO BID for 8 Days, #16 CAP Continued Medications: Alendronate Sodium (Alendronate Sodium) 70 Mg Tab 1 TAB PO QWEEKLY, #4 TAB 3 Refills Atorvastatin Calcium (Lipitor) 10 Mg Tab 1 TAB PO DAILY, #30 TAB 5 Refills Gabapentin (Gabapentin) 300 Mg Cap 1 CAP PO TID, #90 CAP 5 Refills Levetiracetam (Keppra) 1,000 Mg Tab 1 TAB PO BID, #60 TAB 5 Refills Losartan Potassium (Losartan Potassium) 100 Mg Tab 1 TAB PO DAILY, #30 TAB 5 Refills Metformin Hydrochloride (Metformin Hcl) 500 Mg Tab 1 TAB PO BID, #60 TAB 3 Refills Metoprolol Succinate (Metoprolol Succinate Er) 50 Mg Tab 1 TAB PO DAILY, #30 TAB 5 Refills Tramadol Hcl (Tramadol Hcl) 50 Mg Tab 50 MG PO Q6HPRN, TAB Scheduled Alendronate Sodium (Alendronate Sodium), 1 TAB PO QWEEKLY, (Reported) Atorvastatin Calcium (Lipitor), 1 TAB PO DAILY, (Reported) Azithromycin (Azithromycin), 1 TAB PO DAILY Cefdinir (Cefdinir), 1 CAP PO BID Gabapentin (Gabapentin), 1 CAP PO TID, (Reported) Levetiracetam (Keppra), 1 TAB PO BID, (Reported) Losartan Potassium (Losartan Potassium), 1 TAB PO DAILY, (Reported) Metformin Hydrochloride (Metformin Hcl), 1 TAB PO BID, (Reported) Metoprolol Succinate (Metoprolol Succinate Er), 1 TAB PO DAILY, (Reported) Tramadol Hcl (Tramadol Hcl), 50 MG PO Q6HPRN, (Reported) Discharge Statement: "Patient was advised to return to the ER or call 911 if any headaches, dizziness, shortness of breath, chest pain, abdominal pain, bleeding, fevers, or worsening of medical condition. Patient was counseled about treatment plan, medications, possible side effects, patientverbalized understanding. All questions were answered to the best of my ability. This discharge took greater then 30 minutes in planning, reviewing documentation, counseling the patient, and discussing with other team members." ASSESSMENT ASSESSMENT Assessment 69-year-old female with a known history of epilepsy currently on Keppra, history of shingles, status post right nephrectomy, diabetes mellitus type 2, hyperte nsion, dyslipidemia, peripheral neuropathy presented to the hospital with generalized weakness and frequent falls found to have 1. Acute hypoxic respiratory failure requiring O2 supplementation suspected secondary to community-acquired pneumonia 2. Community-acquired pneumonia/Gram-positive/Gram-negative 3. Generalized weakness with frequent falls 4. Epilepsy 5. Diabetes mellitus type 2 6. Dyslipidemia 7. Hypertension 8. Urinary tract infection 9. Peripheral neuropathy Date of Service: Jun 02, 2025 Billing Provider: ABHAY LOJA MD Common Visit Codes: NOT BILLABLE ABHYA LOJA MD Jun 02, 2025 15:41
[2025-06-02 15:47] LABS: Glucose 168 mg/dL (74-106)
[2025-06-02] MEDS: CYANOCOBALAMIN 500 MCG TAB PO ONE (18:49)
== END 2025-06-02 19:46 | disposition home or self-care (01) | DRG 177 ==
LOC: ER 18:04 → EDBD 18:04 → OVERFLOW 22:37 → ER 22:41 → TELE-CENTR 23:47 → TELE-WESTW 05-31 03:01
PROVIDERS: ADMIT Internal Medicine; ATTEND Internal Medicine
DX: J15.69 Pneumonia due to other Gram-negative bacteria (principal); J96.01 Acute respiratory failure with hypoxia; E87.3 Alkalosis; E87.1 Hypo-osmolality and hyponatremia; N17.9 Acute kidney failure, unspecified; N39.0 Urinary tract infection, site not specified; J15.9 Unspecified bacterial pneumonia; G40.909 Epilepsy, unspecified, not intractable, without status epilepticus; E11.42 Type 2 diabetes mellitus with diabetic polyneuropathy; I10 Essential (primary) hypertension; Z20.822 Contact with and (suspected) exposure to COVID-19; E78.5 Hyperlipidemia, unspecified; R29.6 Repeated falls; Z79.84 Long term (current) use of oral hypoglycemic drugs; Z86.19 Personal history of other infectious and parasitic diseases; Z90.5 Acquired absence of kidney
CPT/HCPCS: 36415; 36600; 70450; 71045; 71275; 80048; 80053; 81001; 82607; 82746; 82805; 82962; 83605; 83880; 84300; 84443; 84484; 85025; 85379; 87040; 87426; 87804; 93005; 94640; 96365; 96375; 97163; G0378; J1815; J2470